=== PATIENT | female | born 1960 | race Caucasian/White ===

== ENCOUNTER 2016-11-14 08:34 | Outpatient (CLI) | payer BC | END 2016-11-14 08:35 | disposition home or self-care (01) | DX: Z00.00 Encounter for general adult medical examination without abnormal findings (principal); Z83.2 Family history of diseases of the blood and blood-forming organs and certain disorders involving the immune mechanism ==

== ENCOUNTER 2016-11-14 08:36 | Outpatient (CLI) | payer BC | END 2016-11-14 08:37 | disposition home or self-care (01) | DX: Z78.0 Asymptomatic menopausal state (principal) ==

== ENCOUNTER 2016-11-14 08:58 | Outpatient (CLI) | payer BC | END 2016-11-14 08:59 | disposition home or self-care (01) | DX: Z12.31 Encounter for screening mammogram for malignant neoplasm of breast (principal) ==